=== PATIENT | male | born 1975 | race Caucasian/White ===

== ENCOUNTER 2020-02-27 02:25 | Emergency (ER) | payer BC ==
--- NOTE | 2020-02-27 04:36 | RADIOLOGY REPORT (SQ) ---
PA and lateral chest: 02/27/2020 3:34 AM CDT History: 44-year old patient with chest pain. Comparison: None available Findings: The cardiomediastinal silhouette is enlarged. No pneumothorax is seen. No discrete pleural effusion is apparent. No acute airspace opacities are seen. Impression: No acute airspace opacities are seen. The cardiomediastinal silhouette is enlarged.
[2020-02-27 05:09] LABS: ABSOLUTE BASOPHILS # (AUTO) 0.1 10^3/uL (0.0-0.2); ABSOLUTE EOSINOPHILS # (AUTO) 0.2 10^3/uL (0.0-0.6); ABSOLUTE LYMPHOCYTES (AUTO) 2.9 10^3/uL (0.5-4.7); ABSOLUTE MONOCYTES (AUTO) 1.3 10^3/uL (0.1-1.4); ABSOLUTE NEUT (AUTO) 10.5 10^3/uL (1.7-8.2); BASOPHILS % (AUTO) 0.9 % (0-2); EOSINOPHILS % (AUTO) 1.6 % (0-6); HEMATOCRIT 50.4 % (37.9-51.0); HEMOGLOBIN 17.4 g/dL (13.5-17.0); LYMPHOCYTES % (AUTO) 19.4 % (13-45); MEAN CORPUSCULAR HEMOGLOBIN 30.6 pg (27.0-33.4); MEAN CORPUSCULAR HGB CONC 34.5 g/dL (32.0-36.0); MEAN CORPUSCULAR VOLUME 89 fl (80-97); MONOCYTES % (AUTO) 8.4 % (3-13); PLATELET COUNT 306 10^3/uL (150-450); RED BLOOD COUNT 5.69 10^6/uL (4.35-5.55); RED CELL DISTRIBUTION WIDTH 14.7 % (11.5-14.0); SEGMENTED NEUTROPHILS % (AUTO) 69.7 % (42-78); TOTAL CELLS COUNTED % (AUTO) 100 %; WHITE BLOOD COUNT 15.1 10^3/uL (4.0-10.5)
[2020-02-27 05:29] LABS: ALBUMIN 4.9 g/dL (3.5-5.0); ALKALINE PHOSPHATASE 78 U/L (38-126); ANION GAP 10 (5-19); ASPARTATE AMINO TRANSFERASE 27 U/L (17-59); BILIRUBIN,TOTAL 0.5 mg/dL (0.2-1.3); BLOOD UREA NITROGEN 19 mg/dL (7-20); CALCIUM 10.3 mg/dL (8.4-10.2); CARBON DIOXIDE 23 mmol/L (22-30); CHLORIDE 106 mmol/L (98-107); CREATINE KINASE 124 U/L (55-170); GLUCOSE 121 mg/dL (75-110); POTASSIUM 4.6 mmol/L (3.6-5.0); TOTAL PROTEIN 8.4 g/dL (6.3-8.2)
[2020-02-27 05:39] LABS: CREATINE KINASE MB 0.82 ng/mL (<4.55)
[2020-02-27 05:47] LABS: TROPONIN I 0.082 ng/mL
[2020-02-27] MEDS ORDERED: ASPIRIN 81 MG TABLET, CHEWABLE PO ONE (05:57)
[2020-02-27] MEDS ORDERED: METOPROLOL TARTRATE PF/INJ 5 MG/5 ML SDV IV ONE ×2 (06:05→07:17)
--- NOTE | 2020-02-27 06:56 | ER Document Report ---
ED Cardiac <NGUYEN SUTHERLAND - Last Filed: 02/27/20 12:26> - Related Data Home Medications: HCTZ <MICHAEL LOPEZ - Last Filed: 02/27/20 17:15> - General Chief Complaint: Chest Pain Stated Complaint: CHEST PAIN/DIFFICULTY BREATHING Time Seen by Provider: 02/27/20 05:52 Primary Care Provider: KASEY EDGE MD [ACTIVE PROVISIONAL STAFF] - Follow up as needed Notes: Second troponin came back at .060. Discussed with Dr. Kelly. Recommends calling cardiology. Called Dr. Edge who says he will come see the patient. Consult placed. (NGUYEN SUTHERLAND) Patient is a 44-year-old male who presents emergency department with a chief complaint of chest pain. Patient states that his pain started this evening around 1:00 in the morning. Stated that he had some sharp, crushing chest pain on the left side that radiated. He states that he attempted to lay down in pain got worse. When the pain got worse, he ended up notifying his and came to the emergency department. He does not take any medications. He arrived via personal vehicle. Patient is an everyday smoker. Patient states that he is supposed to be on lisinopril/chlorothiazide, but does not take his medication on a regular basis. Patient states he was working outside yesterday after the storm. (MICHAEL LOPEZ) - Related Data Allergies/Adverse Reactions: No Known Allergies Allergy (Verified 02/27/20 03:43) Past Medical History - General Information source: Patient - Social History Smoking Status: Current Every Day Smoker Frequency of alcohol use: Heavy Drug Abuse: None, Marijuana Family History: Reviewed & Not Pertinent - Past Medical History Cardiac Medical History: Reports: Hx Hypertension - noncompliant <MICHAEL LOPEZ - Last Filed: 02/27/20 17:15> Review of Systems <MICHAEL LOPEZ - Last Filed: 02/27/20 17:15> - Review of Systems Notes: REVIEW OF SYSTEMS: CONSTITUTIONAL : Denies recent illness. Denies recent unintentional weight loss. Denies fever, chills, or sweats. EENT: Denies eye, ear, throat, or mouth pain, discharge, or symptoms. Denies nasal or sinus congestion. CARDIOVASCULAR: See HPI. RESPIRATORY: See HPI. GASTROINTESTINAL: Denies nausea, vomiting, and diarrhea. Denies abdominal pain. Denies constipation. GENITOURINARY: Denies difficulty urinating, burning, blood in urine, urgency or frequency. MUSCULOSKELETAL: Denies neck and back pain. Denies joint pain or swelling. SKIN: Denies rash, itchiness, or lesions HEMATOLOGIC : Denies easy bruising or bleeding. LYMPHATIC: Denies swollen, painful, enlarged glands. NEUROLOGICAL: Denies no numbness or tingling denies weakness. Denies headache. Denies altered mental status. Denies alteration in speech. PSYCHIATRIC: Denies stress, anxiety, alteration in sleep patterns, or depression. All other systems reviewed and negative. (JOHNMICHAEL M) Physical Exam <MICHAEL LOPEZ - Last Filed: 02/27/20 17:15> - Vital signs Vitals: Temp Pulse Resp BP Pulse Ox 98.6 F 97 22 H 186/92 H 98 02/27/20 02:44 02/27/20 02:44 02/27/20 02:44 02/27/20 02:44 02/27/20 02:44 - Notes Notes: PHYSICAL EXAMINATION: GENERAL: Appears obese, no acute distress. HEAD: Normocephalic, atraumatic. EYES: PERRL, conjunctiva normal, all extraocular movements intact, sclera non icteric ENT: Moist mucous membranes. NECK: Supple, no noticeable swelling, redness, rash. Normal range of motion. LUNGS: Equal breath sounds bilaterally and clear to auscultation. No wheezes ra les or rhonchi. CARDIOVASCULAR: S1-S2, regular rate, regular rhythm. Radial pulses 2+, normal. ABDOMEN: Normoactive bowel sounds. Soft, nontender, no guarding, no rebound tenderness, and no masses palpated. EXTREMITIES: Normal strength and range of motion, no pitting or edema. No cyanosis. NEUROLOGICAL: Moves all extremities upon command. Strength 5/5 in all extremities. PSYCH: Normal mood, normal affect. SKIN: Warm, dry. No rash, lesions, ulcerations noted. Normal skin turgor. (JOHNMICHAEL Lukasz) Course - Laboratory Result Diagrams: 02/27/20 04:50 02/27/20 04:50 <NGUYEN SUTHERLAND - Last Filed: 02/27/20 12:26> - Laboratory Result Diagrams: 02/27/20 04:50 02/27/20 04:50 <MICHALE LOPEZ - Last Filed: 02/27/20 17:15> - Re-evaluation Re-evalutation: Second troponin came back at .060. Heart Score of 3. Discussed with Dr. Kelly. Recommends calling cardiology. Called Dr. Edge who says he will come see the patient. Consult placed. 02/27/20 10:54 I was notified by the nurse that the patient does not desire to wait for cardiology. I talked with the patient who states he is ready to leave. I would recommend close follow up with cardiology. 02/27/20 10:56 I called the component overhaul operator to page Dr. Edge to let him know the patient does not desire to stay. Eggs Inspector notifies me that the patient is currently on his way to the ER. 02/27/20 10:59 Dr. Edge at bedside. (NGUYEN SUTHERLAND) 02/27/20 07:11 Chest x-ray is unremarkable. Hematology shows a leukocytosis of 15,100, which is undifferentiated. His hemoglobin is also 17.4. Chemistries show a calcium of 10.3 and protein of 8.4. This is consistent with dehydration. Initial troponin is 0.082. I was notified of this and patient was brought back to her room and placed on the monitor. This was my initial assessment of him. He states that he does not have any chest pain anymore. 02/27/20 08:17 Bedside report given to PENG Hill. Awaiting second troponin and based off of troponin, will determine disposition. (JOHNMICHAEL Lukasz) - Vital Signs Vital signs: Temp Pulse Resp BP Pulse Ox 98.6 F 97 21 H 158/95 H 99 02/27/20 03:44 02/27/20 02:44 02/27/20 09:01 02/27/20 09:01 02/27/20 09:01 - Laboratory Laboratory results interpreted by me: 02/27/20 02/27/20 04:50 04:50 WBC 15.1 H RBC 5.69 H Hgb 17.4 H RDW 14.7 H Absolute Neuts (auto) 10.5 H Glucose 121 H Calcium 10.3 H Total Protein 8.4 H - EKG Interpretation by Me Additional EKG results interpreted by me: 02/27/20 06:07 Sinus rhythm with first-degree AV block. Rate 90. MN 216; QRS 96; QT 360; QTc 441. No ST elevations or depressions noted. (MICHAEL LOPEZ) Discharge <NGUYEN SUTHERLAND - Last Filed: 02/27/20 12:26> <MICHAEL LOPEZ - Last Filed: 02/27/20 17:15> - Discharge Clinical Impression: Chest pain Qualifiers: Chest pain type: unspecified Qualified Code(s): R07.9 - Chest pain, unspecified Hypertension Qualifiers: Hypertension type: essential hypertension Qualified Code(s): I10 - Essential (primary) hypertension Condition: Stable Disposition: HOME, SELF-CARE Instructions: Chest Pain of Unclear Cause ([facility]) Additional Instructions: Please follow-up with cardiology. You have an appointment on Tuesday. Please return to the emergency department for worsening symptoms or the development of new symptoms. Please ensure that you hydrate appropriately as well. I also recommend you follow-up with your primary care provider in regards to your hypertension and assistance with smoking cessation. Prescriptions: Aspirin [Aspir-Low] 81 mg PO DAILY 30 Days #30 tablet. Nitroglycerin 0.4 mg SL ASDIR PRN 3 Days #15 tab.subl PRN Reason: Forms: Elevated Blood Pressure, Smoking Cessation Education Referrals: KASEY EDGE MD [ACTIVE PROVISIONAL STAFF] - Follow up as needed
--- NOTE | 2020-02-27 07:45 | EKG REPORT ---
SEVERITY:- ABNORMAL ECG - SINUS RHYTHM FIRST DEGREE AV BLOCK CONSIDER ANTERIOR INFARCT : Confirmed by: Ever Velásquez MD 27-Feb-2020 07:44:50
[2020-02-27 10:12] VITALS: BP 158/95
--- NOTE | 2020-02-27 10:29 | ER Document Report ---
Doctor's Note Notes: 02/27/20 10:25 I was asked to evaluate this patient along with midlevel provider. 44-year-old male cigarette smoker with history of hypertension but no history of diabetes or hyperlipidemia and no history of thromboembolic disease or CAD as well as no familial history of CAD is seen at this time for evaluation of chest pain which has resolved prior to arrival. 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 When he came in last night he felt fatigued and went to bed. He awakened in the middle of the night with some sweating and muscular cramping and had some vague discomfort in the center of his chest without radiation which lasted under 5 minutes. He subsequently had 2 more episodes of the discomfort. He took some Pepto-Bismol with resolution of the symptoms and is had no recurrence today. He decided to come in this morning to "get checked". Blood pressure was initially elevated around 180/85. Subsequent readings had declined without further intervention. EKG is reviewed and is unremarkable. Initial troponin was 0.08 and a second value 3 hours later had declined to 0.06. CBC and comprehensive metabolic profile are unremarkable. HEART Score: HISTORY 2 ECG 0 AGE 0 RISK FACTORS 1 TROPONIN 0 TOTAL: 3 If HEART score is = 3 AND both tronponin measurments are normal, the 30 day risk of a major adverse cardiac event (all-cause mortality, myocardia infarction or need for coronary revscularization) is < 1% (Sensitivity 100%, NPV 100%). I think this patient is probably stable for outpatient evaluation by cardiology. I recommended the midlevel provider consult with the on-call injection molder, Dr. Justino Edge and if he is agreeable we will refer the patient for outpatient treadmill testing.
--- NOTE | 2020-02-27 11:40 | PDOC CONSULTATION ---
Consultation Consult Date: 02/27/20 Attending physician:: KHUSHI SIBLEY Provider Consulted: KASEY BAILEY Consult reason:: Chest pain. History of Present Illness History of Present Illness: KRISTY JIMENEZ is a 44 year old male with history of hypertension, tobacco use of 1 pack/day for at least 20 years who is consulted by the emergency room for evaluation of chest pain. The patient had been very busy in the last 2 days cleaning up debris and using a chainsaw in his yard without any symptoms. He was at rest and trying to fall asleep when he had one episode of chest discomfort, localized to the substernal area, lasting for 5 minutes, associated with mild diaphoresis and with spontaneous resolution after the patient got up from bed and stood in front of a fan. He went back to his bed and tried to fall back asleep when 10 or 15 minutes later he had another episode of similar chest pain, without radiation but this time associated with shortness of breath and also lasting 5 minutes. At this point he decided to come to the emergency room where he has been asymptomatic and with detectable but nondiagnostic troponins. His main complaint is feeling exhausted, tired, he has not slept in 2 days. He is very anxious to go home. Physical exam on 02/27/2020: GENERAL: Pleasant and conversational. Obese oriented x3 with normal mood. Not in acute distress. Well groomed and well developed. HEENT: Normocephalic, atraumatic. Pupils equal. Sclerae anicteric. Oropharynx moist. NECK: No JVD. No carotid bruits. LUNGS: Clear to auscultation bilaterally. Normal respiratory effort without the use of accessory muscles or intercostal retractions. CARDIOVASCULAR: Regular rate and rhythm, normal S1 and S2 without murmurs, rubs, or gallops. PMI not displaced. ABDOMEN: No masses or tenderness to palpation. No bruit. No splenomegaly or hepatomegaly. No abdominal aorta bruit noted. EXTREMITIES: No edema, no cyanosis, no clubbing. +2 pulses femoral and pedal pulses bilaterally. SKIN: No lesions or rashes. MUSCULOSKELETAL: No chest tenderness to palpation. NEUROLOGIC: Nonfocal. No gross sensory or motor deficits bilateral upper or lower extremities. Past Medical History Cardiac Medical History: Reports: Hypertension - noncompliant Social History Smoking Status: Current Every Day Smoker Family History Parental Family History Reviewed: Yes Children Family History Reviewed: Yes Sibling(s) Family History Reviewed.: Yes Medication/Allergy Home Medications: Aspirin [Aspir-Low] 81 mg PO DAILY 30 Days #30 tablet.dr 02/27/20 Nitroglycerin 0.4 mg SL ASDIR PRN 3 Days #15 tab.subl 02/27/20 Allergies/Adverse Reactions: No Known Allergies Allergy (Verified 02/27/20 03:43) Physical Exam Vital Signs: Temp Pulse Resp BP Pulse Ox 98.6 F 97 21 H 158/95 H 99 02/27/20 03:44 02/27/20 02:44 02/27/20 09:01 02/27/20 09:01 02/27/20 09:01 Intake & Output 02/26/20 02/27/20 02/28/20 06:59 06:59 06:59 Weight 140 kg Results Laboratory Results: 02/27/20 04:50 02/27/20 04:50 02/27/20 02/27/20 04:50 04:50 WBC 15.1 H RBC 5.69 H Hgb 17.4 H Hct 50.4 MCV 89 MCH 30.6 MCHC 34.5 RDW 14.7 H Plt Count 306 Seg Neutrophils % 69.7 Sodium 139.1 Potassium 4.6 Chloride 106 Carbon Dioxide 23 Anion Gap 10 BUN 19 Creatinine 0.95 Est GFR ( Amer) > 60 Glucose 121 H Calcium 10.3 H Total Bilirubin 0.5 AST 27 Alkaline Phosphatase 78 Total Protein 8.4 H Albumin 4.9 02/27/20 02/27/20 02/27/20 04:50 04:50 04:50 Creatine Kinase 124 CK-MB (CK-2) 0.82 Troponin I 0.082 NT-Pro-B Natriuret Pep 21 02/27/20 08:18 Creatine Kinase CK-MB (CK-2) Troponin I 0.060 NT-Pro-B Natriuret Pep Impressions: 02/27/20 04:50 02/27/20 04:50 MCV 89 fl (80-97) 02/27/20 04:50 MCH 30.6 pg (27.0-33.4) 02/27/20 04:50 MCHC 34.5 g/dL (32.0-36.0) 02/27/20 04:50 RDW 14.7 % (11.5-14.0) H 02/27/20 04:50 Seg Neutrophils % 69.7 % (42-78) 02/27/20 04:50 Chloride 106 mmol/L (98-107) 02/27/20 04:50 Carbon Dioxide 23 mmol/L (22-30) 02/27/20 04:50 Anion Gap 10 (5-19) 02/27/20 04:50 Est GFR ( Amer) > 60 (>60) 02/27/20 04:50 Glucose 121 mg/dL (75-110) H 02/27/20 04:50 Calcium 10.3 mg/dL (8.4-10.2) H 02/27/20 04:50 Total Bilirubin 0.5 mg/dL (0.2-1.3) 02/27/20 04:50 AST 27 U/L (17-59) 02/27/20 04:50 Alkaline Phosphatase 78 U/L (38-126) 02/27/20 04:50 Total Protein 8.4 g/dL (6.3-8.2) H 02/27/20 04:50 Albumin 4.9 g/dL (3.5-5.0) 02/27/20 04:50 02/27/20 02/27/20 02/27/20 04:50 04:50 04:50 Creatine Kinase 124 CK-MB (CK-2) 0.82 Troponin I 0.082 NT-Pro-B Natriuret Pep 21 02/27/20 08:18 Creatine Kinase CK-MB (CK-2) Troponin I 0.060 NT-Pro-B Natriuret Pep Current Medication List Discontinued Medications Generic Name Dose Route Start Last Admin Trade Name Ander PRN Reason Stop Dose Admin Aspirin 324 mg 02/27/20 05:57 02/27/20 06:00 Aspirin 81 Mg Chewable Tablet PO 02/27/20 05:58 324 mg NOW ONE Administration Metoprolol Tartrate 2.5 mg 02/27/20 06:05 02/27/20 06:10 Lopressor Inj/Pf 5 Mg/5 Ml Sdv IV 02/27/20 06:06 2.5 mg NOW ONE Administration Metoprolol Tartrate 2.5 mg 02/27/20 07:17 02/27/20 07:45 Lopressor Inj/Pf 5 Mg/5 Ml Sdv IV 08/05/20 07:18 2.5 mg NOW ONE Administration Assessment & Plan - Diagnosis (1) Chest pain Qualifiers: Chest pain type: unspecified Qualified Code(s): R07.9 - Chest pain, unspecified Is this a current diagnosis for this admission?: Yes Plan: 44-year-old male with cardiac risk factors of gender, uncontrolled hypertension, sedentary lifestyle and tobacco abuse who has had at least 2 episodes chest discomfort with both typical and atypical features. His EKG is nondiagnostic for ischemic changes and his troponin, although detectable, it is indeterminate and downtrending. Given his cardiac risk factors and symptoms I recommended both the patient and his to admit him for expedited ischemic work-up with nuclear stress testing however the patient declined and is determined to go home and rest. I had a very long discussion with him and his regarding the importance of calling 911 if symptoms recur. He was explained how to use sublingual nitroglycerin and agreed to return to [facility] for outpatient nuclear stress test on Tuesday. He also declined regular exercise stress testing today. Recommendations: -No strenuous physical activities for now. -Low-cholesterol/low-sodium diet. -Sublingual nitroglycerin as instructed. -Baby aspirin daily. -Call 911 if symptoms recur. (2) Hypertension Qualifiers: Hypertension type: essential hypertension Qualified Code(s): I10 - Essential (primary) hypertension Is this a current diagnosis for this admission?: Yes Plan: His blood pressure is uncontrolled, unfortunately he does not have a primary care provider. Recommendations: -Continue with outpatient medical regimen for now. -The patient was instructed to establish with a primary care provider DA. -Low-sodium diet (3) Tobacco abuse Is this a current diagnosis for this admission?: Yes Plan: We had a long discussion regarding the pathophysiology and cardiovascular as well as overall consequences of using tobacco. He was counseled to quit smoking DA.
== END 2020-02-27 17:07 | disposition home or self-care (01) ==
LOC: ER 02:25
DX: R07.9 Chest pain, unspecified (principal); R53.83 Other fatigue; R06.00 Dyspnea, unspecified; F17.210 Nicotine dependence, cigarettes, uncomplicated; I10 Essential (primary) hypertension; Z91.19 Patient's noncompliance with other medical treatment and regimen
CPT/HCPCS: 93005; 96376; 99285; 96374; 36415; 82553; 82550; 85025; 80053; 84484; 83880; 71046; 93010; J3490

== ENCOUNTER → 2020-02-29 | Outpatient (CLI) | payer BC ==
--- NOTE | 2020-02-29 10:45 | DRAGON STRESS TEST REPORT ---
Name: Jens Mitchell : 77 Date: 02/29/20 The patient underwent a stress/rest, single isotope SPECT Imaging with exercise stress and gated SPECT imaging for evaluation of. The patient underwent treadmill exercise using the Mitchell protocol, completing 8:30 minutes and completing an estimated workload of 10.1 metabolic equivalents (METS). The test was terminated due to fatigue and calf pain. The heart rate was 83 beats per minute at baseline and increased to 162 beats at peak exercise, which was 91% of the maximum predicted heart rate. The rest blood pressure was 149/80 mm/Hg and increased to 202/56 mm/Hg, which is a normal response. The patient complained of chest tightness and dyspnea during the procedure. The resting electrocardiogram demonstrated NSR and showed 1-[address] depression in the inferior leads during exertion. Myocardial perfusion imaging was performed at rest following the injection of 11.59 mCi of sestamibi. At peak exercise, the patient was injected with 37.9 mCi of sestamibi and exercise was continued for minute(s). Gating post-stress tomographic imaging was performed 60 minutes after stress. Findings The overall quality of the study is good. Raw images demonstrate no significant artifacts. Left ventricular cavity is noted to be enlarged on the rest and stress studies. The right ventricle is noticeable. Resting SPECT images demonstrate a small sized, of mild intensity perfusion defect in the inferior wall that improves during exertion and, therefore, represents artifact. The stress images demonstrate a small sized, of mild to moderate intensity perfusion defect in the mid anterior wall. Gated SPECT imaging reveals normal myocardial thickening and wall motion. The left ventricular ejection fraction was calculated to be 48% Impression -Hypertension at rest with normal response to exertion. -Mildly decreased exercise tolerance given his age. -No exercise-induced dysrhythmias. -Myocardial perfusion imaging is abnormal. -There is no scintigraphic evidence of infarct. -There is scintigraphic evidence of mild ischemia in the mid anterior wall. -Overall left ventricular systolic function was mildly abnormal without wall motion abnormalities. -There are no prior studies for comparison. Of note, the patient was contacted by me via phone and results of the test were discussed. He has been set up for outpatient follow up with me on [id number] at [id number]. He was instructed to avoid strenuous physical activities and to use both baby aspirin and s/l NTG as prescribed. He was instructed to call 911 if chest pain recurs. MTDD
== END ==
LOC: RAD 07:08
PROVIDERS: ATTEND Orthopaedic Surgery
DX: R07.9 Chest pain, unspecified (principal)
CPT/HCPCS: 93017; 78452; A9500; Q9969